=== PATIENT | male | born 1970 | race Caucasian/White ===

== ENCOUNTER 2018-12-22 11:30 | Inpatient (IN) | payer OTHER ==
[~2018-12-22] VITALS: Ht 172.7 cm; Wt 72.7 kg
[~2018-12-22 11:30] MED LIST: ADDERALL 10 MG10 MG PO; AVODART0.5 MG PO; DULERA 100 MCG8.8 GM INH; MICARDIS HCT 801 TAB PO; PROZAC20 MG PO; ZYLOPRIM300 MG PO
[2019-01-05] MEDS ORDERED: VITAMIN D3400 UNI1 PO (13:53)
[2019-01-05] MEDS ORDERED: ELIQUIS5 MG PO (13:53)
[2019-01-05] MEDS ORDERED: DONEPEZIL HCL10 MG PO (13:54)
[2019-01-05] MEDS ORDERED: LEXAPRO20 MG PO (13:55)
[2019-01-05] MEDS ORDERED: GEMFIBROZIL600 MG PO (13:56)
[2019-01-05] MEDS ORDERED: KEPPRA500 MG PO (13:57)
[2019-01-05] MEDS ORDERED: MUCINEX600 MG PO (13:57)
[2019-01-05] MEDS ORDERED: NIZORAL 2 % SH120 ML TOPICAL (13:57)
[2019-01-05] MEDS ORDERED: ADDERALL 10 MG10 MG PO (13:58)
[2019-01-05] MEDS ORDERED: SINGULAIR10 MG PO (13:58)
[2019-01-05] MEDS ORDERED: SUDOGEST PE10 MG PO (13:59)
[2019-01-05] MEDS ORDERED: ULTRAM50 MG PO (14:00)
[2019-01-05] MEDS ORDERED: HYDROCODON-ACE1 EAC2 (14:02)
[2019-01-05 15:05] LABS: BASOPHILS 1.2 % (0-2); EOSINOPHILS 1.2 % (0-7); HEMATOCRIT 45.3 % (42.0-54.0); HEMOGLOBIN 15.4 g/dL (13.5-17.5); IMMATURE GRANULOCYTES 0.2 % (0-5); LYMPHOCYTES 21.2 % (15-50); MCH 28.9 pg (26.0-34.0); MEAN PLATELET VOLUME 11.4 fL (7.4-10.4); MONOCYTES 7.9 % (2-11); NEUTROPHILS 68.3 % (40-80); PLATELET COUNT 295 10x3/uL (130-400); RBC 5.33 10x6/uL (4.20-6.10); RDW 13.7 % (11.5-14.5); WBC 8.2 10x3/uL (4.8-10.8)
[2019-01-05 15:08] LABS: APPEARANCE CLEAR (CLEAR); COLOR YELLOW (YELLOW); GLUCOSE NEGATIVE (NEGATIVE); KETONE NEGATIVE (NEGATIVE); NITRITE NEGATIVE (NEGATIVE); PROTEIN NEGATIVE (NEGATIVE); SPECIFIC GRAVITY 1.015 (1.005-1.020)
[2019-01-05 15:09] LABS: BILIRUBIN NEGATIVE (NEGATIVE); UROBILINOGEN NORMAL (NORMAL)
[2019-01-05 15:14] LABS: CALC OSMOLALITY 285 mosm/kg (275-300); CALCIUM 9.1 mg/dL (8.5-10.1); CARBON DIOXIDE 29.8 mmol/L (21.0-32.0); CHLORIDE - SERUM 105 mmol/L (98-107); CREATININE - SERUM 0.7 mg/dL (0.6-1.3); GLUCOSE 144 mg/dL (74-106); POTASSIUM - SERUM 3.8 mmol/L (3.5-5.1); SODIUM 142 mmol/L (136-145); UREA NITROGEN 13 mg/dL (7-18); eGFR NON AFRICAN AMERICAN > 90 mL/min (90-120)
[2019-01-05 15:33] LABS: INR 1.08 (0.85-1.17); PROTIME 13.5 SECONDS (11.6-15.0)
[2019-01-05 15:34] LABS: APTT 35.3 SECONDS (22.8-39.4)
[2019-01-08] MEDS ORDERED: LOVENOX80 MG/0.8 SC (11:36)
[2019-01-08 11:42] VITALS: BMI 24.3
--- NOTE | 2019-01-08 13:33 | NUR ---
PLASMA BLADE SET 6/8 BOVIE PAD RIGHT THIGH [id number] EXP 05/26/2020
[2019-01-08 16:00] VITALS: BP 102/63
[2019-01-08 16:13] VITALS: BP 98/60; Ht 172.7 cm; Wt 72.7 kg
--- NOTE | 2019-01-08 20:15 | NUR ---
LYING IN BED TALKING TO HIS PARENTS. ALERT AND ORIENTED X4. HX OF CVA WITH LT SIDED WEAKNESS. LT HAND IS CONTRACTURED. HAS LLE WEAKNESS. LT SHOULDER HAS DRSG WITH IMMOBILIZER IN USE. ICE PACK ON AT THIS TIME. SCDS IN USE BILAT. NO EDEMA NOTED. RESP EVEN AND NONALBORED. ENCOURAGED TO COUGH AND DEEP BREATHE Q 2 HOURS. DENIES PAIN. RADIAL PULSE GOOD. 1/2 NS @ 75 ML/HR INFUSING IN RT WRIST WITHOUT DIFF. SR ELEVATED X3. CL IN REACH.
--- NOTE | 2019-01-08 20:45 | NUR ---
CONSUMED 100% OF SANDWICH. PT BOAZ WELL.
[2019-01-08 21:09] VITALS: BP 90/55
[2019-01-09 00:23] VITALS: BP 112/60
--- NOTE | 2019-01-09 00:50 | NUR ---
RESTING QUIETLY WITH EYES CLOSED. RESP EVEN AND NONLABORED. ICE PACK APPLIED TO LT SHOULDER. PULSES GOOD. NO DISTRESS. SR ELEVATED X3. CL IN REACH.
--- NOTE | 2019-01-09 02:35 | NUR ---
REQUESTED PAIN MED. MEDICATED WITH [facility] FOR C/O PAIN IN LT SHOULDER RATING 4. CL IN REACH. ICE PACK REMOVED
[2019-01-09 05:09] VITALS: BP 104/59
[2019-01-09 06:09] LABS: HEMATOCRIT 38.1 % (42.0-54.0); HEMOGLOBIN 12.7 g/dL (13.5-17.5); MCH 28.6 pg (26.0-34.0); MCHC 33.3 g/dL (31.0-37.0); MCV 85.8 fL (80.0-100.0); MEAN PLATELET VOLUME 11.5 fL (7.4-10.4); RBC 4.44 10x6/uL (4.20-6.10); RDW 13.7 % (11.5-14.5); WBC 9.4 10x3/uL (4.8-10.8)
--- NOTE | 2019-01-09 07:30 | NUR ---
REPORT RECIEVED AND CARE ASSUMED NO DISTRESS NOTED DRESSING TO LEFT SHOULDER NOTED HAS SLING NOTED TO LEFT ARM FROM ORTHO SURGERY PER DR LAM POD#1 TODAY FAMILY AT BEDSIDE. CALL LIGHT IN REACH SIDE RAILS UP X 2
--- NOTE | 2019-01-09 08:00 | NUR ---
PT REQUESTED AND RECIEVED PERCOCET FOR PAIN CONTROL WILL MONITOR EFFECTIVENESS.
[2019-01-09 08:17] VITALS: BP 104/64
[2019-01-09] MEDS ORDERED: PERCOCET 10-321 EAC1 PO (08:39)
--- NOTE | 2019-01-09 09:30 | NUR ---
PT RESTING IN BED WITH EYES CLOSED RESPS EVEN AND NON LABORED CALL LIGHT INREACH FAMILY AT SIDE
--- NOTE | 2019-01-09 11:05 | MORECARE ---
CASE MANAGEMENT DISCHARGE SUMMARY PATIENT: JOAN TREVINO UNIT: [id number] ADM DATE: 01/08/19 AGE: 48 : 74 SEX: M ROOM/BED: D.2212 AUTHOR: JERROD PADRON PHYSICIAN: REFERRING PHYSICIAN: SHERRIE LAM MD DATE OF SERVICE: 01/09/19 Discharge Plan Patient Name: JOAN TREVINO Facility: [facility]:[place] : 1970 Planned Disposition: Home or Self Care Anticipated Discharge Date: Discharge Date: Expected LOS: Initial Reviewer: [email or web address] Initial Review Date: 01/08/2019 Generated: 01/09/19 12:04 pm Comments DCP- Discharge Planning Updated by [email or web address]: Taty Miller on 01/09/19 10:[address] Patient Name: JOAN TREVINO Admission Status: Elective Accout number: [id number] Admission Date: 01-08-2019 : 1970 Admission Diagnosis: Attending: SHERRIE LAM Current LOS: 1 Anticipated DC Date: Planned Disposition: Home or Self Care Primary Insurance: [employer] PPO Discharge Planning Comments: CM met with patient's mother to assess discharge planning needs. She stated that she will be his residential driver home. He lives with his aunt where he plans to return at discharge. He is partially dependent with his care. He is a post CVA where he is doing [facility] 3 x a week with [facility] in [place]. He has a cane, wheelchair and shower chair at home. He also wears braces that he needs help putting on. His mother stated that he does really well with what they are doing now. His good arm is not the operative site. He plans to continue to do therapy at [facility] when he is discharge. I gave mom a new written order for OT therapy to start on 01/08. CM will continue to follow and assist with DC planning as needed Assistant Chief Of Police: Taty Miller DCPIA - Discharge Planning Initial Assessment Updated by [email or web address]: Taty Miller on 01/09/19 10:58 am * Is the patient Alert and Oriented? Yes * How many steps to enter\exit or inside your home? * PCP [facility] * [facility] * Preadmission Environment Home with Family * ADLs Partial Dependent * Partial ADLs (Assistance needed) Toileting Transfers * Equipment Cane Shower Chair Wheelchair * Other Equipment braces * List name and contact numbers for known caregivers / representatives who currently or will assist patient after discharge: Kaela Palumbo (mother) [phone] * Verbal permission to speak to the caregivers and representatives has been obtained from the patient. Yes * Community resources currently utilized Other * Please name any agencies selected above. does [facility] at [facility] 3 x a week * Additional services required to return to the preadmission environment? No * Can the patient safely return to the preadmission environment? Yes * Has this patient been hospitalized within the prior 30 days at any hospital? No Patient Name: JOAN TREVINO Page [phone] at 1105 All edits/amendments must be made on the electronic document DICTATION DATE: 01/09/191103 DISPATCHER TOW TRUCK: MAILE 01/09/191103 RPT#: [id number] DC DATE: STATUS: ADM IN [facility] [address] [place] [address] END OF REPORT
--- NOTE | 2019-01-09 12:41 | NUR ---
PT COMPLAINS OF PAIN AT THIS TIME REQUESTING PERCOCET FOR PAIN GIVEN AT THIS TIME.
--- NOTE | 2019-01-09 14:27 | NUR ---
PT GIVEN DISCHARGE INSTRUCTIONS PER STAFF EXPRESSED UNDERSTANDING PER MOTHER AND PT FOR FOLLOW UP CARE WELL DRESSING CARE. PIV D/C TIP INTACT WITH [facility] SENT WITH RX FOR PERCOCET #40
--- NOTE | 2019-01-10 07:28 | MORECARE ---
CASE MANAGEMENT DISCHARGE SUMMARY PATIENT: JOAN TREVINO UNIT: [id number] ADM DATE: 01/08/19 AGE: 48 : 74 SEX: M ROOM/BED: D.2212 AUTHOR: JERROD PADRON PHYSICIAN: REFERRING PHYSICIAN: SHERRIE LAM MD DATE OF SERVICE: 01/10/19 Discharge Plan Patient Name: JOAN TREVINO Facility: [facility]:[place] : 1970 Planned Disposition: Home or Self Care Anticipated Discharge Date: Discharge Date: 01/09/2019 Expected LOS: 0 Initial Reviewer: [email or web address] Initial Review Date: 01/08/2019 Generated: 01/10/19 8:27 am Comments DCP- Discharge Planning Updated by [email or web address]: Taty Miller on 01/09/19 10:[address] Patient Name: JOAN TREVINO Admission Status: Elective Accout number: [id number] Admission Date: 01-08-2019 : 1970 Admission Diagnosis: Attending: SHERRIE LAM Current LOS: 1 Anticipated DC Date: Planned Disposition: Home or Self Care Primary Insurance: [employer] PPO Discharge Planning Comments: CM met with patient's mother to assess discharge planning needs. She stated that she will be his special education bus driver home. He lives with his aunt where he plans to return at discharge. He is partially dependent with his care. He is a post CVA where he is doing [facility] 3 x a week with [facility] in [place]. He has a cane, wheelchair and shower chair at home. He also wears braces that he needs help putting on. His mother stated that he does really well with what they are doing now. His good arm is not the operative site. He plans to continue to do therapy at [facility] when he is discharge. I gave mom a new written order for OT therapy to start on 01/08. CM will continue to follow and assist with DC planning as needed Limnology Teacher: Taty Miller DCPIA - Discharge Planning Initial Assessment Updated by [email or web address]: Taty Miller on 01/09/19 10:58 am * Is the patient Alert and Oriented? Yes * How many steps to enter\exit or inside your home? * PCP [facility] * [facility] * Preadmission Environment Home with Family * ADLs Partial Dependent * Partial ADLs (Assistance needed) Toileting Transfers * Equipment Cane Shower Chair Wheelchair * Other Equipment braces * List name and contact numbers for known caregivers / representatives who currently or will assist patient after discharge: Kaela Palumbo (mother) [phone] * Verbal permission to speak to the caregivers and representatives has been obtained from the patient. Yes * Community resources currently utilized Other * Please name any agencies selected above. does [facility] at [facility] 3 x a week * Additional services required to return to the preadmission environment? No * Can the patient safely return to the preadmission environment? Yes * Has this patient been hospitalized within the prior 30 days at any hospital? No Last DP export: 01/09/19 10:05 a Patient Name: JOAN TREVINO Page [phone] at 0728 All edits/amendments must be made on the electronic document DICTATION DATE: 01/10/19726 SUMATRA OPENER: MAILE 01/10/19726 RPT#: [id number] DC DATE:01/09/19 STATUS: DIS IN [facility] [address] [place] [address] END OF REPORT
--- NOTE | 2019-01-10 11:12 | OP ---
PATIENT NAME: JOAN TREVINO MEDICAL RECORD: [id number] :74 LOCATION:D.MS [place]12 ADMISSION DATE:01/08/19 SURGEON: SHERRIE LAM MD DATE OF OPERATION: 01/08/2019 PREOPERATIVE DIAGNOSIS: Degenerative arthritis of the left shoulder. POSTOPERATIVE DIAGNOSIS: Degenerative arthritis of the left shoulder. PROCEDURE: Left total shoulder arthroplasty. SURGEON: Sherrie Lam MD FIRST ASSISANT: Jesus Manuel Murphy. INTRAOPERATIVE COMPLICATIONS: None. SUMMARY OF PATHOLOGIC FINDINGS: Severe osteoarthritis, large osteophytes as well as glenohumeral arthrosis. IMPLANTS USED: Arthrex Univers II humeral stem, long, size 10 press fit; Arthrex Univers VaultLock, size medium; Arthrex Univers II humeral head 46 x 18. INDICATIONS: This is a 48-year-old gentleman who last year had a large right middle cerebral infarct and has made vast improvements with his near recovery while he still has substantial residual. He is having a hard time doing any upper extremity exercises due to the extreme osteoarthritis of his right shoulder after a emt intermediate discussion of the risks, hazards, and benefits associated with this, he understood and desperately wanted to proceed with shoulder arthroplasty, which was agreed upon. OPERATIVE SUMMARY IN DETAIL: After obtaining the appropriate preoperative orthopedic surgery consent as well as anesthetic consultation, evaluation and clearance, the patient was brought to the operating room and placed on the operating table in supine position. After general laryngeal mask airway was administered, the patient was placed in beach chair position. All pressure points were well padded. He was held firmly to the operating table using the vacuum pack suction system. Left upper extremity and shoulder were then prepped and draped in routine sterile fashion. The arm was held in Trimano arm holding device. Deltopectoral incision was taken down. The deltoid was retracted laterally. The deltopectoral interval and the deltoid was gently retracted medially. Conjoined tendon was then identified and also retracted medially gently. At this point, the biceps tendon was identified, stitched, tagged, and saved for later repair and it was cut proximally. Subscapularis was reflected in a peel back fashion. This was tagged and used for reflection. The humeral head was gently dislocated into the incision, it was cut using the humeral head cutting guide from the Arthrex Univers II system. Serial and sequential reaming and broaching were done for a size 2 long stem. Broach was put into place with the humeral head cutting protector over it and then the glenoid was approached with excellent visualization of the glenoid. Circumferential labrectomy was followed by serial reaming for a size medium VaultLock glenoid. Final preparations were made for this and the VaultLock glenoid was cemented into place. All excess cement was removed before it was allowed to harden. The wound was copiously irrigated. VaultLock glenoid component was held in place while the cement was allowed to harden. Attention was then returned to the OPERATIVE REPORT [id number] JOAN TREVINO proximal humerus. Size 10 Univers II stem was put into place with excellent fill. It was locked inferior screw as well as the central screw and the 46 x 18 humeral head was dialed to the appropriate position for full coverage, tamped into place on the Martinez taper. Shoulder was reduced, taken through range of motion and found to be appropriately stable. The closure done by Jesus Manuel Murphy was a transosseous #2 Ethibond to the lesser tuberosity while tenodesing the biceps tendon and the closure. After copious irrigation, the wound was closed with #1 Vicryl followed by 2-0 Vicryl and skin katie. Sterile dressings were applied. The patient was awakened, taken to recovery room in stable condition. All final needle and sponge counts were correct. TRANSINT:[id number] Voice Confirmation ID: [id number] DOCUMENT ID: [id number] CAROLE HASKINS, SHERRIE ADAME at 1112 CC: [id number] DICTATION DATE: 01/08/19 1411 MAMMAL CONTROL AGENT: 01/08/19 1601 DIS IN 01/09/19 [facility] [address] [place] [id number]
== END 2019-01-09 14:38 | disposition home or self-care (01) | DRG 483 ==
LOC: D.SDCHOLD 01-08 10:25 → D.MS 01-08 10:25 → D.SDCHOLD 01-08 12:15 → D.MS 01-08 15:34 → D.SDCHOLD 01-08 16:40 → D.MS 01-09 14:38
PROVIDERS: ADMIT Orthopaedic Surgery; ATTEND Orthopaedic Surgery
PROC: 0RRK0JZ Replacement of Left Shoulder Joint with Synthetic Substitute, Open Approach (ICD-10-PCS; principal; 2019-01-08 12:30)
DX: M19.012 Primary osteoarthritis, left shoulder (principal)

== ENCOUNTER → 2019-01-01 17:11 | Outpatient (CLI) | payer OTHER ==
[2016-05-13 09:25] VITALS: BMI 30.4
[~2019-01-01 17:11] MED LIST changes: +DONEPEZIL HCL10 MG PO; +ELIQUIS5 MG PO; +GEMFIBROZIL600 MG PO; +HYDROCODON-ACE1 EAC2; +KEPPRA500 MG PO; +LEXAPRO20 MG PO; +LOVENOX80 MG/0.8 SC; +MUCINEX600 MG PO; +NIZORAL 2 % SH120 ML TOPICAL; +PERCOCET 10-321 EAC1 PO; +SINGULAIR10 MG PO; +SUDOGEST PE10 MG PO; +ULTRAM50 MG PO; +VITAMIN D3400 UNI1 PO
== END | disposition home or self-care (01) ==
LOC: D.LABREF 17:11
PROVIDERS: ATTEND Orthopaedic Surgery
DX: M19.012 Primary osteoarthritis, left shoulder (principal)

== ENCOUNTER 2019-01-19 22:58 | Emergency (ER) | payer OTHER ==
[~2019-01-19] VITALS: Ht 172.7 cm; Wt 72.7 kg
[2019-01-19 23:03] VITALS: Ht 172.7 cm; Wt 72.7 kg
[2019-01-19] MEDS ORDERED: HYDROCODON-ACE1 EA10 PO (23:04)
[2019-01-20 00:26] VITALS: BP 131/85
== END 2019-01-20 00:38 | disposition home or self-care (01) ==
LOC: D.ER 22:58
DX: G89.18 Other acute postprocedural pain (principal); M25.512 Pain in left shoulder

== ENCOUNTER 2020-05-08 16:15 | Inpatient (IN) | payer OTHER, MEDICAID ==
[~2020-05-08] VITALS: Ht 175.3 cm; Wt 73.9 kg
[~2020-05-08 16:15] MED LIST changes: +HYDROCODON-ACE1 EA10 PO
[2020-05-15] MEDS ORDERED: FLUTICASONE PRO16 GM NASAL (11:38)
[2020-05-15] MEDS ORDERED: PROSCAR5 MG PO (11:40)
[2020-05-15] MEDS ORDERED: ZETIA10 MG PO (11:41)
[2020-05-15] MEDS ORDERED: BACLOFEN10 MG PO (11:41)
[2020-05-15] MEDS ORDERED: FOLIC ACID1 MG PO (11:41)
[2020-05-15] MEDS ORDERED: GABAPENTIN300 MG PO (11:41)
[2020-05-15 12:01] LABS: BASOPHILS 2.7 % (0-2); EOSINOPHILS 10.7 % (0-7); HEMATOCRIT 45.3 % (42.0-54.0); HEMOGLOBIN 15.5 g/dL (13.5-17.5); IMMATURE GRANULOCYTES 3.3 % (0-5); LYMPHOCYTES 30.3 % (15-50); MCH 30.2 pg (26.0-34.0); MCHC 34.2 g/dL (31.0-37.0); MCV 88.1 fL (80.0-100.0); MEAN PLATELET VOLUME 11.7 fL (7.4-10.4); MONOCYTES 6.4 % (2-11); NEUTROPHILS 46.6 % (40-80); PLATELET COUNT 304 10x3/uL (130-400); RBC 5.14 10x6/uL (4.20-6.10); RDW 12.6 % (11.5-14.5); WBC 4.9 10x3/uL (4.8-10.8)
[2020-05-15 12:06] LABS: CALC OSMOLALITY 277 mosm/kg (275-300); CALCIUM 9.6 mg/dL (8.5-10.1); CARBON DIOXIDE 27.5 mmol/L (21.0-32.0); CHLORIDE - SERUM 101 mmol/L (98-107); CREATININE - SERUM 0.9 mg/dL (0.6-1.3); GLUCOSE 254 mg/dL (74-106); POTASSIUM - SERUM 4.4 mmol/L (3.5-5.1); SODIUM 135 mmol/L (136-145); UREA NITROGEN 10 mg/dL (7-18); eGFR NON AFRICAN AMERICAN > 90 mL/min (90-120)
[2020-05-15 12:45] LABS: INR 1.15 (0.85-1.17); PROTIME 14.6 SECONDS (11.6-15.0)
[2020-05-15 12:46] LABS: APTT 29.3 SECONDS (22.8-39.4)
[2020-05-15] MEDS ORDERED: DOCUSATE S50 MG/5 ML PO (13:01)
[2020-05-19 09:26] VITALS: BMI 24.1
[2020-05-19 10:29] LABS: NITRITE NEGATIVE (NEGATIVE)
[2020-05-19 10:34] LABS: BACTERIA FEW /hpf (NEGATIVE); BILIRUBIN NEGATIVE (NEGATIVE); EPITHELIAL CELLS OCC /hpf (0-5); GLUCOSE NEGATIVE (NEGATIVE); KETONE SMALL mg/dL (NEGATIVE); RED CELLS - URINE RARE /hpf (0-5); UROBILINOGEN NORMAL (NORMAL); WHITE CELLS - URINE 0-5 /hpf (NEGATIVE)
[2020-05-19 16:00] VITALS: BP 101/70
[2020-05-19 16:13] VITALS: BP 101/71
--- NOTE | 2020-05-19 16:15 | NUR ---
PATIENT RECEIVED TO ROOM 1209 VIA BED FROM PACU. A/O X3. MOTHER AT BEDSIDE. DRESSING TO LEFT SHOULDER DRY AND INTACT. DAVOL DRAIN IN PLACE WITH SEROUS SANGUINESS DRAINAGE NOTED. SKIN OTHERWISE INTACT. DENIES NEEDS. VSS.
[2020-05-19 16:17] VITALS: BP 101/71; BMI 24.1
[2020-05-19 17:36] VITALS: BP 95/67
--- NOTE | 2020-05-19 17:45 | NUR ---
SECOND DINNER TRAY SERVED IN ROOM. ABLE TO FEED SELF WITH SOME SET UP ASSISTANCE. DENIES NEEDS. NO CHANGES NOTED.
--- NOTE | 2020-05-19 18:23 | NUR ---
ATE ALMOST ALL OF SECOND TRAY. MOM BACK AT BEDSIDE. DENIES NEEDS. NO CHANGES NOTED.
[2020-05-19 19:06] VITALS: BP 110/62
--- NOTE | 2020-05-19 19:06 | NUR ---
PATIENT RESTING IN BED WITH NO S/D OF DISTRESS. MOM AT BEDSIDE. PATIENT DENIES NEEDS. VSS. ENCOURAGED PATIENT TO CALL IF HE HAS NEEDS, WILL CONTINUE TO MONITOR.
[2020-05-19] MEDS ORDERED: MIRALAX17 GM PO (19:56)
--- NOTE | 2020-05-19 20:03 | NUR ---
PATIENT REQUESTED MIRALAX AND REFUSED COLACE. PATIENT STATED HE TAKES MIRALAX DAILY AT HOME AND COLACE DOESN'T WORK FOR HIM. ADMINISTERED MEDS PER ORDERS. PATIENT DENIES OTHER NEEDS AT THIS TIME. WILL CONTINUE TO MONITOR.
[2020-05-19 23:34] VITALS: BP 113/57
[2020-05-20 05:09] VITALS: BP 94/59
[2020-05-20 06:11] LABS: HEMATOCRIT 35.3 % (42.0-54.0); HEMOGLOBIN 11.8 g/dL (13.5-17.5); MCH 29.9 pg (26.0-34.0); MCHC 33.4 g/dL (31.0-37.0); MCV 89.4 fL (80.0-100.0); MEAN PLATELET VOLUME 11.2 fL (7.4-10.4); RBC 3.95 10x6/uL (4.20-6.10); RDW 12.7 % (11.5-14.5); WBC 5.9 10x3/uL (4.8-10.8)
[2020-05-20 08:26] VITALS: BP 125/74
--- NOTE | 2020-05-20 08:58 | NUR ---
PT ALERT X 4. BREATH SOUNDS DIMINISHED TO LOWER LOBES, INCENTIVE SPIROMETER ENCOURAGED. IV TO RIGHT HAND, SALINE LOCKED. SLING TO LEFT ARM. DRESSING TO LEFT SHOULDER CDI. DAVOL DRAIN IN USE, BLOODY OUTPUT. PT REPORTING PAIN OF 4/10, MEDICATED PER ORDERS, WILL CONTINUE TO MONITOR. LEFT HAND CONTRACTED, LEFT FOOT DROP.
[2020-05-20 13:22] VITALS: BP 121/76
[2020-05-20 13:52] VITALS: Ht 175.3 cm; Wt 73.9 kg
[2020-05-20 16:01] VITALS: BP 127/79
--- NOTE | 2020-05-20 19:30 | NUR ---
PT RECEIVED AT SHIFT CHANGED ALERT AND ORIENTED SITTING IN BED, WATCHING TV. CALL LIGHT AT LEFT HAND. POST OP DAY 1, PT REPORTS NO CONCERNS AT THIS TIME.
[2020-05-20 20:00] VITALS: BP 117/80; BP 125/81
--- NOTE | 2020-05-21 05:34 | NUR ---
PT ACCIDENTLY PULLED OUT IV. CATHETER INTACT. BANDAGED WITH 2X2 AND PAPER TAPE. NO HEMORRHAGING NOTED. APPLIED PRESSURE.
[2020-05-21 07:10] LABS: HEMOGLOBIN 12.7 g/dL (13.5-17.5); MCH 30.4 pg (26.0-34.0); MCHC 34.3 g/dL (31.0-37.0); MCV 88.5 fL (80.0-100.0); MEAN PLATELET VOLUME 11.3 fL (7.4-10.4); RBC 4.18 10x6/uL (4.20-6.10); RDW 12.9 % (11.5-14.5); WBC 6.8 10x3/uL (4.8-10.8)
[2020-05-21 08:00] VITALS: BP 128/78
--- NOTE | 2020-05-21 09:19 | NUR ---
PT ALERT X 4. BREATH SOUNDS CLEAR BILAT. NO IV ACCESS AT THIS TIME. SLING TO LEFT ARM, DRESSING CDI. LEFT HAND CONTRACTED. LEFT FOOT DROP. PT REPORTING PAIN OF 7/10, MEDICATED PER ORDERS, WILL CONTINUE TO MONITOR. BED LOW, CALL LIGHT IN REACH. NO OTHER NEEDS AT THIS TIME.
[2020-05-21] MEDS ORDERED: PERCOCET 10-321 EAC1 PO (09:20)
--- NOTE | 2020-05-21 12:40 | MORECARE ---
CASE MANAGEMENT DISCHARGE SUMMARY PATIENT: JOAN TREVINO UNIT: [id number] ADM DATE: 05/19/20 AGE: 49 : 74 SEX: M ROOM/BED: D.1209 AUTHOR: JERROD PADRON PHYSICIAN: REFERRING PHYSICIAN: SHERRIE LAM MD DATE OF SERVICE: 05/21/20 Discharge Plan Patient Name: JOAN TREVINO Facility: [facility]:[place] : 1970 Planned Disposition: Home with Home Health Anticipated Discharge Date: Discharge Date: Expected LOS: Initial Reviewer: [email or web address] Initial Review Date: 05/19/2020 Generated: 05/21/20 1:39 pm DCPIA - Discharge Planning Initial Assessment Updated by [email or web address]: Taty Miller on 05/21/20 12:38 pm * Is the patient Alert and Oriented? Yes * PCP DR GREEN * [facility] * Preadmission Environment Home Alone * ADLs Partial Dependent * Partial ADLs (Assistance needed) Ambulation Bathing Toileting Transfers * Equipment Bedside Commode Cane Rolling Walker Shower Chair Walker Wheelchair * List name and contact numbers for known caregivers / representatives who currently or will assist patient after discharge: SHAHEEN NICOLAS [phone] * Verbal permission to speak to the caregivers and representatives has been obtained from the patient. Yes * Community resources currently utilized [employer] * Please name any agencies selected above. [facility] 65 HOURS + 20 PER MONTH * Additional services required to return to the preadmission environment? Yes * Can the patient safely return to the preadmission environment? Yes * Has this patient been hospitalized within the prior 30 days at any hospital? No Patient Name: JOAN TREVINO Page 12549 at 1240 All edits/amendments must be made on the electronic document DICTATION DATE: 05/21/20 1240 PROVIDER RELATIONS ADVOCATE: MAILE 05/21/20 1240 RPT#: [id number] DC DATE: STATUS: ADM IN [facility] [address] [place] [address] END OF REPORT
--- NOTE | 2020-05-21 12:48 | MORECARE ---
CASE MANAGEMENT DISCHARGE SUMMARY PATIENT: JOAN TREVINO UNIT: [id number] ADM DATE: 05/19/20 AGE: 49 : 74 SEX: M ROOM/BED: D.1209 AUTHOR: JERROD PADRON PHYSICIAN: REFERRING PHYSICIAN: SHERRIE LAM MD DATE OF SERVICE: 05/21/20 Discharge Plan Patient Name: JOAN TREVINO Facility: [facility]:[place] : 1970 Planned Disposition: Home with Home Health Anticipated Discharge Date: Discharge Date: Expected LOS: Initial Reviewer: [email or web address] Initial Review Date: 05/19/2020 Generated: 05/21/20 1:47 pm Comments DCP- Discharge Planning Updated by [id number]: Taty Miller on 05/21/20 11:[address] Patient Name: JOAN TREVINO Admission Status: Elective Accout number: [id number] Admission Date: 05-19-2020 : 1970 Admission Diagnosis:PAIN DUE TO INTERNAL ORTHOPEDIC PROSTH DEV/GRFT, INIT Attending: SHERRIE LAM Current LOS: 2 Anticipated DC Date: Planned Disposition: Home with Home Health Primary Insurance: [employer] O Discharge Planning Comments: CM met with patient to complete initial dc planning assessment. CM educated patient on the CM role and verbal consent given by patient to complete assessment. Patient lives at home with where he is partially independent with his care. At discharge patient plans to return home and feels this is a safe discharge. CM discussed availability of home health, rehab services, and medical equipment. He has [facility] where he has 65 hours + 20 hours per month. His mom says that he needs help with personal care, getting him in bed, cooking. He has a shower chair, wheelchair, walker, cane, AFO, arm brace. He will need home health, [facility] with [facility]. I have contacted [facility] and sent the referral. Patient denied known discharge needs at this time. CM will continue to follow and will assist as needed with dc plans/needs. Cafeteria Table Attendant: Taty Miller DCPIA - Discharge Planning Initial Assessment Updated by [email or web address]: Taty Miller on 05/21/20 12:38 pm * Is the patient Alert and Oriented? Yes * PCP DR GREEN * [facility] * Preadmission Environment Home Alone * ADLs Partial Dependent * Partial ADLs (Assistance needed) Ambulation Bathing Toileting Transfers * Equipment Bedside Commode Cane Rolling Walker Shower Chair Walker Wheelchair * List name and contact numbers for known caregivers / representatives who currently or will assist patient after discharge: SHAHEEN VALENZUELA [phone] * Verbal permission to speak to the caregivers and representatives has been obtained from the patient. Yes * Community resources currently utilized [employer] * Please name any agencies selected above. [facility] 65 HOURS + 20 PER MONTH * Additional services required to return to the preadmission environment? Yes * Can the patient safely return to the preadmission environment? Yes * Has this patient been hospitalized within the prior 30 days at any hospital? No External Providers External Provider: [facility] Next Contact Date: Service Request Date: Service Type: Resolution: Reviewer: Comments: Last DP export: 05/21/20 11:40 a Patient Name: JOAN TREVINO Page 16572 at 1248 All edits/amendments must be made on the electronic document DICTATION DATE: 05/21/20 1248 ISOTOPE TECHNICIAN: MAILE 05/21/20 1248 RPT#: [id number] DC DATE: STATUS: ADM IN [facility] [address] [facility], [place] [address] END OF REPORT
--- NOTE | 2020-05-21 13:08 | NUR ---
DISCHARGE PAPERWORK SIGNED, ALL QUESTIONS ANSWERED. ESCORTED OUT VIA WHEELCHAIR.
--- NOTE | 2020-05-23 08:05 | OP ---
PATIENT NAME: JOAN TREVINO MEDICAL RECORD: [id number] :74 LOCATION:D.M3 D.1209 ADMISSION DATE:05/19/20 SURGEON: SHERRIE LAM MD DATE OF OPERATION: 05/19/2020 PREOPERATIVE DIAGNOSIS: Painful left total shoulder arthroplasty. POSTOPERATIVE DIAGNOSIS: Painful left total shoulder arthroplasty. PROCEDURE: Resection arthroplasty of left total shoulder arthroplasty. SURGEON: Sherrie Lam MD FORESTRY LABORER: ALIDA Salgado INTRAOPERATIVE COMPLICATIONS: None, SUMMARY OF PATHOLOGIC FINDINGS: Essentially none. INDICATIONS: Robert Trevino is a 49-year-old gentleman who had had a very large right-sided stroke, leaving him left-sided hemiparetic. He was making vast strides in his recovery and had begun to walk again and was doing fairly well with his upper extremity; however, he had severe arthritis that was very painful when he tried to move it. Because he was continuing to improve, we did a total shoulder arthroplasty. Unfortunately, his improvement stopped in its entirety and he began to lose strength in his rotator cuff as well as his deltoid and his shoulder became more and more painful. After long attempts at seeing if it would improve or get better, the patient decided he can no longer stand the pain. We even looked at having a brachial stimulator put in; however, on secondary referral to Dr. Paiz in [place], the decision was made to just take the implant out. I have discussed this with Dr. Paiz and agreed. The patient came back to me and asked if I would do his resection arthroplasty and I gladly agreed. OPERATIVE SUMMARY IN DETAIL: After obtaining the appropriate preoperative orthopedic surgery consent as well as anesthetic consultation, evaluation, and clearance, the patient was brought to the operating room and placed on the operating table in the supine position. After adequate general laryngeal mask airway was administered, the patient was placed in the beach chair position. All pressure points were well padded. He was held firmly to the operating table using the Vac-Pac suction system. Left upper extremity and shoulder were then prepped and draped in routine sterile fashion. Arm was held in the Trimano arm holding device. At this point, the appropriate time-out was taken and agreed upon by all given the patient's unique identifiers. Deltopectoral incision was taken down. Cephalic vein was identified and protected throughout the case. The deltoid was then gently detached from a scarred-in position on the patient's rotator cuff. It was then held retracted with a Velasquez retractor. The conjoined tendon was also adherent; however, it was gently dissected free and held gently medially. Subscapularis was taken down and saved for later reapproximation. The humeral head of the component was taken off followed by removal of the implant stem with a little degree of difficulty. The glenoid was exposed. It was very well adherent. It was removed with an osteotome and the residual pegs that did not come out with removal were taken out using a drill and curet. Copious pulsatile lavage irrigation was then followed by placing a gram of vancomycin and tobramycin into the wound itself. The subscapularis was OPERATIVE REPORT [id number] JOAN TREVINO then reapproximated transosseously to the lesser tuberosity to help close the void. A drain was put into place and the deltopectoral interval was closed with #0 Vicryl, 2-0 Vicryl, and skin katie done by ALIDA Salgado. Sterile dressings were applied. The patient was awakened and taken to the recovery room in stable condition. All final needle and sponge counts were correct. NTS:[id number] Voice Confirmation ID: [id number] DOCUMENT ID: [id number] CAROLE HASKINS, SHERRIE ADAME at 0805 CC: [id number] DICTATION DATE: 05/22/20 1350 COPY CHIEF: 05/22/201918 DIS IN 05/21/20 [facility] [address] [place] [address]
== END 2020-05-21 13:08 | disposition home health service (06) | DRG 497 ==
LOC: D.M3 05-19 08:35 → D.SDCHOLD 05-19 08:35 → D.M2 05-19 10:30 → D.M3 05-19 15:34
PROVIDERS: ADMIT Orthopaedic Surgery; ATTEND Orthopaedic Surgery
PROC: 0RPK0JZ Removal of Synthetic Substitute from Left Shoulder Joint, Open Approach (ICD-10-PCS; principal; 2020-05-19 10:45)
DX: T84.84XA Pain due to internal orthopedic prosthetic devices, implants and grafts, initial encounter (principal); Y83.9 Surgical procedure, unspecified as the cause of abnormal reaction of the patient, or of later complication, without mention of misadventure at the time of the procedure; E11.9 Type 2 diabetes mellitus without complications; I10 Essential (primary) hypertension; Z86.73 Personal history of transient ischemic attack (TIA), and cerebral infarction without residual deficits